=== PATIENT | female | born 1995 | race Caucasian/White ===

== ENCOUNTER 2017-05-08 14:18 | Emergency (ER) | payer OTHER ==
[2017-05-08 14:25] VITALS: BP 150/98
--- NOTE | 2017-05-08 14:50 | PHYS DOC ---
General Chief Complaint: EYE PROBLEMS Stated Complaint: EYE PROBLEM Time Seen by MD: 14:39 Source: patient Exam Limitations: no limitations Problems: History of Present Illness Initial Comments Patient is a 21-year-old female who comes to the ED stating she thinks she has pinkeye. Patient states she awoke at 3 AM with left eye burning itching and drainage. Since then her symptoms have worsened she's developed some photophobia no pain with extraocular motion she denies foreign body sensation. No facial swelling or headache. She's had some mild nasal congestion and drainage for the past few days. She denies any vision changes she does not wear corrective lenses. Patient is normally healthy she takes no daily medications no allergies tetanus is up-to-date she has no primary care physician. Timing/Duration: this morning Severity: moderate Location: eye (L) Prearrival Treatment: other Modifying Factors: improves with other Associated Symptoms: other Allergies: Coded Allergies: No Known Drug Allergies (Unverified , 03/29/16) Past Medical History Medical History: other (anxiety, depression) Surgical History: tonsillectomy Social History Smoker: non-smoker Alcohol: none Drugs: none Constitutional: denies chills, denies diaphoresis, denies fever, denies malaise Eyes: see HPI Ears: denies dizziness, denies pain, denies tinnitus Nose: congestion Throat: denies pain, denies swelling, denies discharge Respiratory: denies cough, denies shortness of breath Cardiovascular: denies chest pain, denies palpitations Gastrointestinal: denies nausea, denies vomiting Physical Exam General Appearance: WD/WN, no apparent distress Eyes: right eye normal inspection, left eye PERRL, left eye EOMI, left eye other (conjunctivae injected with yellow discharge, no periorbital swelling no pain with extraocular motion) Nose: normal inspection Mouth/Throat: normal mouth inspection, pharynx normal Neck: non-tender, supple Cardiovascular/Respiratory: normal breath sounds, no respiratory distress 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 Departure Time of Disposition: 14:48 Disposition: 01 HOME, SELF-CARE Diagnosis: conjunctivitis left eye Condition: GOOD Patient Instructions: Conjunctivitis (Viral and Bacterial) Additional Instructions: Aggressive handwashing and linen changes as discussed to prevent spread of infection. [id number] Tylenol and ibuprofen as needed. Prescription: Polytrim As discussed is recommended you follow-up with a primary care doctor. There are local physician to accept walk-in patients, ED staff can also provide you with information regarding [facility] who accepts income based compensation. [place] with that organization tomorrow if needed so he may follow up in 7-10 days. Follow-up with the doctor in 7-10 days for recheck. Return to ED with new or changing symptoms. SELENA CALDERON DO May 08, 2017 14:50
[2017-05-08] MEDS ORDERED: POLY10DR OD (14:51)
== END 2017-05-08 15:03 | disposition home or self-care (01) ==
LOC: ER 14:18
DX: H10.9 Unspecified conjunctivitis (principal)
CPT/HCPCS: 99283

== ENCOUNTER 2020-08-04 16:39 | Emergency (ER) | payer SELFPAY ==
[~2020-08-04] VITALS: Ht 165.1 cm; Wt 157.0 kg
[~2020-08-04 16:39] MED LIST: POLY10DR OD
[2020-08-04 16:50] VITALS: BP 150/94
--- NOTE | 2020-08-04 17:59 | PHYS DOC ---
Past History Past Medical History: Anxiety, Depression Past Surgical History: Tonsillectomy Alcohol Use: Rarely Drug Use: None General Adult EDM: Chief Complaint: SKIN PROBLEM HPI: HPI: Patient is a 24-year-old female who presents with skin rash to her face for 4 days. Patient states that she used a new facemask and since then she has had blistering and redness to her face. Patient states "my face feels like leather and it is very uncomfortable". Patient denies itching. Patient denies using any new soaps or lotions prior to the rash. Patient has taken Benadryl and use hydrocortisone cream at home at home with no relief. Review of Systems: Review of Systems: Constitutional: Denies fever or chills Eyes: Denies change in visual acuity HENT: Denies nasal congestion or sore throat Respiratory: Denies cough or shortness of breath Cardiovascular: Denies chest pain or edema GI: Denies abdominal pain, nausea, vomiting, bloody stools or diarrhea : Denies dysuria Musculoskeletal: Denies back pain or joint pain Integument:Red, rash to face. Neurologic: Denies headache, focal weakness or sensory changes Endocrine: Denies polyuria or polydipsia Lymphatic: Denies swollen glands Psychiatric: Denies depression or anxiety Allergies: Allergies: Allergies Coded Allergies Type Severity Reaction Last Updated Verified No Known Drug Allergies 03/29/16 No Physical Exam: PE: Constitutional: Well developed, well nourished, no acute distress, non-toxic appearance. [] HENT: Normocephalic, atraumatic, bilateral external ears normal, oropharynx moist, no oral exudates, nose normal. [] Eyes: PERRLA, EOMI, conjunctiva normal, no discharge. [] Neck: Normal range of motion, no tenderness, supple, no stridor. [] Cardiovascular:Heart rate regular rhythm, no murmur [] Lungs & Thorax: Bilateral breath sounds clear to auscultation [] Abdomen: Bowel sounds normal, soft, no tenderness, no masses, no pulsatile masses. [] Skin: Warm, dry, no erythema, no rash. [] Back: No tenderness, no CVA tenderness. [] Extremities: No tenderness, no cyanosis, no clubbing, ROM intact, no edema. [] Neurologic: Alert and oriented X 3, normal motor function, normal sensory function, no focal deficits noted. [] Psychologic: Affect normal, judgement normal, mood normal. [] Current Patient Data: Vital Signs: Vital Signs Date Time Temp Pulse Resp B/P (MAP) Pulse Ox O2 Delivery O2 Flow Rate FiO2 08/04/20 16:50 98.4 116 20 150/94 (112) 98 Room Air EKG: EKG: [] Radiology/Procedures: Radiology/Procedures: [] Heart Score: Risk Factors: Risk Factors: DM, Current or recent (<one month) smoker, HTN, HLP, family history of CAD, obesity. Risk Scores: Score 0 - 3: 2.5% MACE over next 6 weeks - Discharge Home Score 4 - 6: 20.3% MACE over next 6 weeks - Admit for Clinical Observation Score 7 - 10: 72.7% MACE over next 6 weeks - Early Invasive Strategies Course & Med Decision Making: Course & Med Decision Making Pertinent Labs and Imaging studies reviewed. (See chart for details) [] Dragon Disclaimer: Xopik Disclaimer: This electronic medical record was generated, in whole or in part, using a voice recognition dictation system. Departure Departure: Impression: Primary Impression: Facial cellulitis Disposition: 01 DC HOME SELF CARE/HOMELESS Condition: STABLE Referrals: PCP,NO (PCP) Patient Instructions: Cellulitis, [id number] Additional Instructions: Use Cetaphil lotion at home. Make sure to not use any lotions that have any type of chemicals. Please take your antibiotics as prescribed and also use the bactroban. If you have trouble breathing or it gets worse please return to the ED. EMERGENCY DEPARTMENT GENERAL DISCHARGE INSTRUCTIONS Thank you for coming to [facility] (ED) today and trusting us with you care. We trust that you had a positivie experience in our Emergency Department. If you wish to speak to the department management, you may call the director at [phone]. YOUR FOLLOW UP INSTRUCTIONS ARE FOLLOWS: 1. Do you have a private Doctor? If you do not have a private doctor, please ask for a resource list of physicians or clinics that may be able to assist you with follow up care. 2. The Emergency Physician has interpreted your x-rays. The X-Ray specialist will also review them. If there is a change in the findings, you will be notified in 48 hours when at all possible. 3. A lab test or culture has been done, your results will be reviewed and you will be notified if you need a change in treatment. ADDITIONAL INSTRUCTIONS AND INFORMATION: 1. Your care today has been supervised by a physician who is specially trained in emergency care. Many problems require more than one evaluation for a complete diagnosis and treatment. We recommend that you schedule your follow up appointment as recommended to ensure complete treatment of you illness or injury. If you are unable to obtain follow up care and continue to have a problem, or if your condition worsens, we recommend that you return to the ED. 2. We are not able to safely determine your condition over the phone nor are we able to give sound medical advice over the phone. For these safety reasons, if you call for medical advice we will ask you to come to the ED for further evaluation. 3. If you have any questions regarding these discharge instructions please call the ED at [phone]. SAFETY INFORMATION: In the interest of safety, wellness, and injury prevention; we encourage you to wear your sealbelt, if you smoke; quite smoking, and we encourage family to use a protective helmet for bicycling and other sporting events that present an increased risk for head injury. IF YOUR SYMPTOMS WORSEN OR NEW SYMPTOMS DEVELOP, OR YOU HAVE CONCERNS ABOUT YOUR CONDITION; OR IF YOUR CONDITION WORSENS WHILE YOU ARE WAITING FOR YOUR FOLLOW UP APPOINTMENT; EITHER CONTACT YOUR PRIMARY CARE DOCTOR, THE PHYSICIAN WHOSE NAME AND NUMBER YOU WERE Janay WANG, OR RETURN TO THE ED IMMEDIATELY. Scripts Sulfamethoxazole/Trimethoprim (BACTRIM DS TABLET) 1 Each Tablet 1 TAB PO BID for facial cellulitis for 10 Days, #20 TAB 0 Refills Prov: ROXANNA ORDAZ APRN 08/04/20 Mupirocin Calcium (MUPIROCIN) 15 Gm Cream..g. 1 TIERNEY TP TID for facial cellulitis for 10 Days, #30 GM 0 Refills Prov: ROXANNA ORDAZ APRN 08/04/20 Cephalexin (KEFLEX) 500 Mg Capsule 500 MG PO Q6HRS for facial cellulitis for 5 Days, #20 TAB Prov: ROXANNA ORDAZ APRN 08/04/20 ROXANNA ORDAZ APRN Aug 04, 2020 17:59
[2020-08-04] MEDS ORDERED: CEPH-264 PO (18:04)
[2020-08-04] MEDS ORDERED: MUPI15CR8 TP (18:04)
[2020-08-04] MEDS ORDERED: SULF1TAB24 PO (18:04)
== END 2020-08-04 18:31 | disposition home or self-care (01) ==
LOC: ER 16:39
DX: L03.211 Cellulitis of face (principal); F41.9 Anxiety disorder, unspecified; F32.9 Major depressive disorder, single episode, unspecified
CPT/HCPCS: 99283

== ENCOUNTER 2021-06-22 16:30 | Emergency (ER) | payer BC ==
[~2021-06-22] VITALS: Ht 175.3 cm; Wt 159.0 kg
[~2021-06-22 16:30] MED LIST changes: +CEPH-264 PO; +MUPI15CR8 TP; +SULF1TAB24 PO
[2021-06-22 16:40] VITALS: BP 163/100
--- NOTE | 2021-06-22 17:07 | PHYS DOC ---
Past History Past Medical History: Anxiety, Depression (SONYA CHEUNG APRN) Past Surgical History: No Surgical History (SONYA CHEUNG APRN) Alcohol Use: None Drug Use: None (SONYA CHEUNG APRN) General Adult EDM: Chief Complaint: VAGINAL PROBLEM HPI: HPI: Patient is a 25-year-old female who presents to the emergency department for "cystlike lesions on her labia". Patient reports that this started 2 to 3 days ago. She is also experiencing some vaginal itching and irritation. She has been applying Neosporin to the lesions and therefore is unsure she is having vaginal discharge as bad as the Neosporin. Patient denies nausea, vomiting, abdominal pain, back pain, fevers, dysuria or other urinary symptoms. (SONYA CHEUNG APRN) Review of Systems: Review of Systems: Constitutional: See HPI GI: See HPI : See HPI Musculoskeletal: See HPI (SONYA CHEUNG APRN) Allergies: Allergies: Allergies Coded Allergies Type Severity Reaction Last Updated Verified No Known Drug Allergies 03/29/16 No (SONYA CHEUNG APRN) Physical Exam: PE: Constitutional: Well developed, well nourished, no acute distress, non-toxic appearance. [] HENT: Normocephalic, atraumatic, bilateral external ears normal, oropharynx moist, no oral exudates, nose normal. [] Eyes: PERRL, EOMI, conjunctiva normal, no discharge. [] Neck: Normal range of motion, no tenderness, supple, no stridor. [] Cardiovascular:Heart rate regular rhythm, no murmur [] Lungs & Thorax: Bilateral breath sounds clear to auscultation [] Abdomen: Bowel sounds normal, soft, no tenderness, no masses, no pulsatile masses. [] Skin: Warm, dry, no erythema, no rash. [] Back: Normal range of motion Extremities: No tenderness, no cyanosis, no clubbing, ROM intact, no edema. [] Neurologic: Alert and oriented X 3, normal motor function, normal sensory function, no focal deficits noted. [] Psychologic: Affect normal, judgement normal, mood normal. [] (SONYA CHEUNG APRN) Current Patient Data: Vital Signs: Vital Signs Date Time Temp Pulse Resp B/P (MAP) Pulse Ox O2 Delivery O2 Flow Rate FiO2 06/22/21 16:40 97.2 101 18 163/100 (121) 97 Room Air (SONYA CHEUNG APRN) EKG: EKG: [] (SONYA CHEUNG APRN) Radiology/Procedures: Radiology/Procedures: [] (SONYA CHEUNG APRN) Heart Score: C/O Chest Pain: N/A Risk Factors: Risk Factors: DM, Current or recent (<one month) smoker, HTN, HLP, family history of CAD, obesity. Risk Scores: Score 0 - 3: 2.5% MACE over next 6 weeks - Discharge Home Score 4 - 6: 20.3% MACE over next 6 weeks - Admit for Clinical Observation Score 7 - 10: 72.7% MACE over next 6 weeks - Early Invasive Strategies (SONYA CHEUNG APRN) Course & Med Decision Making: Course & Med Decision Making Pertinent Labs and Imaging studies reviewed. (See chart for details) [] Patient presents to the emergency department for cystlike lesions on her labia with itching. A pelvic exam was performed. Patient was noted to have vesicular lesions noted to her external genitalia extending to her groin and lower abdomen. Patient reports that she is unable to practice adequate hygiene at home. Patient was tested for gonorrhea, chlamydia and a wet prep was obtained. Wet prep negative for any acute findings. Patient was noted to have thin white vaginal discharge. IUD in place. No adnexal tenderness or cervical motion tenderness. Patient was swabbed for herpes simplex. The lesions to patient's genitalia similar to folliculitis, therefore patient be treated with an antibiotic. Patient states that due to home life she cant practice proper hygiene, given info for abuse hotline info. Patient advised to practice proper feminine hygiene. And she is also advised to avoid sexual intercourse pending results, patient has no concerns for STDs at this time.. I discussed with patient all findings and diagnostic testing as well as the need to follow-up with PCP for further evaluation and treatment or return to the ER if any new or worsening symptoms. Strict return precautions were also discussed at length. Patient voiced understanding and agreement with the plan. Patient is hemodynamically stable at the time of disposition. (SONYA CHEUNG APRN) Dragon Disclaimer: Dragon Disclaimer: This electronic medical record was generated, in whole or in part, using a voice recognition dictation system. (SONYA CHEUNG APRN) Attending Co-Sign The patient was seen and interviewed as well as examined at the bedside. The chart was reviewed. The case was discussed. Agree with the plan of care. (GRACIELA GRIFFIN DO) Departure Departure: Impression: Primary Impression: Folliculitis Disposition: HOME / SELF CARE / HOMELESS Condition: GOOD Referrals: PCP,NO (PCP) Patient Instructions: Folliculitis Additional Instructions: You were seen in the emergency department for genital lesions. You were tested for gonorrhea, chlamydia and herpes. These labs are send outs and you will be notified of the results in approximately 2 days. Your wet prep showed no yeast or bacterial vaginosis. Please avoid any sexual intercourse until you receive your results of the testing. It is possible that you are experiencing folliculitis which is an infection of the hair follicle. This will be treated with an antibiotic. Please start and finish this completely. Ensure proper feminine hygiene. Keep the lesions clean and dry. Follow-up with your primary care provider within 2 days for recheck. Return to the emergency department if you develop worsening of your lesions, vaginal bleeding, abdominal pain, high fevers refractory to treatment intractable nausea vomiting or any new or worsening concerns. Scripts Cephalexin (KEFLEX) 500 Mg Capsule 1 CAP PO QID for folliculitis for 10 Days, #40 CAP 0 Refills Prov: SONYA CHEUNG APRN 06/22/21 SONYA CHEUNG APRN Jun 22, 2021 17:07 GRACIELA GRIFFIN DO Jun 22, 2021 23:24
[2021-06-22] MEDS ORDERED: CEPH500C PO (19:08)
[2021-06-24 20:11] LABS: CHLAMYDIA PROBE Negative (Negative)
[2021-06-27 08:07] LABS: HERPES SIMPLEX TYPE 1 Positive (Negative); HERPES SIMPLEX TYPE 2 Negative (Negative)
== END 2021-06-22 19:20 | disposition home or self-care (01) ==
LOC: ER 16:30
DX: L73.9 Follicular disorder, unspecified (principal)
CPT/HCPCS: 87491; 87529; 87591; 99284; Q0111; 99283